=== PATIENT | male | born 1935 | race Caucasian/White ===

== ENCOUNTER 2019-11-21 17:09 | Emergency (ER) | payer MEDICARE, BC, SELFPAY ==
--- NOTE | ~2019-11-21 | CT_ITS ---
EXAMINATION: CT thoracic spine wo con DATE: 11/21/2019 19:43 INDICATION: Back pain TECHNIQUE: Computed tomography (CT) of the thoracic spine was performed without intravenous contrast. The dose-length product (DLP) was 973.66 mGy-cm. Iterative reconstruction was used. COMPARISON: None FINDINGS: There is an age-indeterminate T12 compression fracture. A chronic L1 compression fracture i s noted. Vertebral body alignment is maintained. There is mild loss of intervertebral disc space heig ht in the midthoracic spine. No additional thoracic spine fracture is identified. The esophagus is so mewhat patulous and contains ingested material. IMPRESSION: 1. Age-indeterminate T12 compression fracture. 2. Chronic L1 compression fracture. 3. Patulous esophagus with ingested material. Reviewed, dictated and finalized at location A.
--- NOTE | ~2019-11-21 | CT_ITS ---
EXAMINATION: CT abd pelvis lumbar wo con DATE: 11/21/2019 19:43 INDICATION: Low back and bilateral flank pain TECHNIQUE: Computed tomography (CT) of the abdomen, pelvis, and lumbar spine was performed without in travenous contrast. The dose-length product (DLP) was 428.59 mGy-cm. Automated exposure control and i terative reconstruction technique were employed. COMPARISON: 04/03/2010 FINDINGS: Abdomen/pelvis: Minimal dependent atelectasis is present in the lung bases. The heart size is enlarge d. There is calcification of the mitral valve. There is a 6 mm nodule of the left lower lobe in assoc iation with the major fissure on image 3. There are changes of prior cardiac surgery. A small sliding hiatal hernia is noted. There is minimal bilateral gynecomastia. Punctate calcifications in an other urias normal spleen likely represent healed granulomatous disease. A stone is present in the nondisten ded gallbladder. The liver, pancreas, and adrenal glands are normal. There is a 10 mm hemorrhagic cys t of the left kidney upper pole. There is atrophy of the kidneys. No stones are identified in the kid neys, ureters, or bladder. There is no hydronephrosis or hydroureter. There is calcified atherosclero sis of the aorta and many of the other arteries. No pathologically enlarged abdominal or pelvic lymph nodes are identified. There is no free intraperitoneal gas or evidence of bowel obstruction. The marshall endix is normal. Lumbar spine: There is a chronic L1 compression fracture. There are age indeterminate compression fra ctures of the T12 and L5 vertebral bodies. Bone alignment is normal. There is mild loss of interverte bral disc space height at L1-2. IMPRESSION: 1. No acute visceral abnormality of the abdomen or pelvis. 2. Age-indeterminate compression fractures of T12 and L5. 3. 6 mm nodule of the left lower lobe. Recommend CT in 6-12 months. Reviewed, dictated and finalized at location A.
--- NOTE | ~2019-11-21 | XR_ITS ---
EXAMINATION: XR chest 2V DATE: 11/21/2019 19:52 INDICATION: Weakness TECHNIQUE: AP and lateral views of the chest are obtained. COMPARISON: 03/20/2010 FINDINGS: The lungs are free of acute opacities. There is no pleural effusion or pneumothorax. The he art size is normal. 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 T12 and L1 compression fractures are noted and described elsewhere . IMPRESSION: 1. No acute cardiopulmonary abnormality. Reviewed, dictated and finalized at location A.
--- NOTE | 2019-11-21 17:50 | ECG_ITS ---
Measurements Intervals [place] Rate: 70 P: 169 LA: 156 QRS: 121 QRSD: 147 T: 137 QT: 448 QTc: 485 Interpretive Statements SINUS RHYTHM ARM LEADS REVERSED RIGHT BUNDLE BRANCH BLOCK BASELINE ARTIFACT- I, II, III, AVR, AVL, AVF ABNORMAL ECG Electronically Signed On 11-22-2019 6:50:30 CDT by Wisam Mcdermott D.O.
[2019-11-21 17:53] VITALS: BP 155/71; PULSE 66; RESP 18; TEMP 36.5; O2SAT 100
[2019-11-21 18:07] LABS: Basophils Percent Auto 0.4 % (0.2-1.2); Eosinophils Absolute Auto 0.1 K/mm3 (0-0.3); Eosinophils Percent Auto 1.6 % (0-4.4); Hematocrit 33.5 % (42.0-52.0); Hemoglobin 11.1 g/dL (14.0-18.0); Immature Granulocyte Absolute 0.03 K/mm3 (0.00-0.031); Immature Granulocyte Percent A 0.3 % (0-0.5); Lymphocytes Absolute Auto 2.88 K/mm3 (0.9-3.2); Lymphocytes Percent Auto 32.2 % (18.3-44.2); Mean Corpuscular HGB Conc 33.1 g/dl (32-36); Mean Corpuscular Hemoglobin 33.4 pg (26-34); Mean Corpuscular Volume 100.9 fl (80-100); Mean Platelet Volume 11.8 fl (7.4-10.4); Monocytes Absolute Auto 0.5 K/mm3 (0.1-0.6); Monocytes Percent Auto 5.9 % (2.6-8.5); Neutrophils Absolute Auto 5.3 K/mm3 (1.3-6.7); Neutrophils Percent Auto 59.6 % (45.5-73.1); Platelet Count Result 172 k/mm3 (150-375); Red Blood Count 3.32 M/mm3 (4.6-6.20); Red Cell Distribution Width 15.8 % (11.5-14.5); White Blood Count 8.9 K/mm3 (4.5-10.0)
[2019-11-21 18:19] LABS: Alanine Aminotransferase 13 U/L (4-50); Albumin Level 3.6 g/dL (3.5-5.1); Alkaline Phosphatase 135 U/L (38-126); Anion Gap 9 mmol/L (8-16); Aspartate Amino Transferase 25 U/L (17-59); Bilirubin,Total 0.3 mg/dL (0.2-1.3); Blood Urea Nitrogen 41 mg/dL (9-20); Calcium 9.7 mg/dL (8.4-10.2); Carbon Dioxide 31 mmol/L (22-30); Chloride 99 mmol/L (98-107); Estimated CRCL calculation 19 ml/min; Estimated Glomerular Filt Rate 23; Glucose 236 mg/dL (75-110); Sodium 139 mmol/L (137-145)
--- NOTE | 2019-11-21 19:14 | ED.WEAKNESS ---
HPI - Weakness General Chief complaint: Weakness Stated complaint: weakness/possible uti Time Seen by Provider: 11/21/19 19:00 History of Present Illness HPI Narrative: Low back pain for the past 3 weeks. Located in the midline. Radiates to the bilateral low back. Becoming increasingly weak. Normally ambulatory, now heavily dependent on walker. He has urinary retention self caths. Maybe decreased urine output. History of CKD, does not know baseline creatinine. Related Data Home Medications Medication Instructions Recorded Confirmed allopurinol 300 mg PO DAILY 11/21/19 bimatoprost [Lumigan] 1 drp 11/21/19 dutasteride 0.5 mg PO DAILY 11/21/19 furosemide 20 mg PO DAILY 11/21/19 insulin NPH and regular human 24 unit SUBCUT QPM 11/21/19 [Humulin 70/30 U-100 Insulin] insulin NPH and regular human 30 unit SUBCUT QAM 11/21/19 [Humulin 70/30 U-100 Insulin] lisinopril 10 mg PO DAILY 11/21/19 metoprolol tartrate 25 mg PO DAILY 11/21/19 pantoprazole 40 mg PO DAILY 11/21/19 rosuvastatin 10 mg PO DAILY 11/21/19 Allergies Allergy/AdvReac Type Severity Reaction Status Date / Time Penicillins Allergy Mild RASH Verified 04/15/10 22:57 Review of Systems Review of Systems: All systems reviewed & are unremarkable except as noted in HPI and below Constitutional: Constitutional: Denies chills, Denies fever(s) and Reports weakness Cardiovascular: Cardiovascular: Denies chest pain Respiratory: Respiratory: Denies dyspnea Gastrointestinal: Gastrointestinal: Reports abdominal pain Genitourinary: Genitourinary: Denies hematuria and Reports oliguria Musculoskeletal: Musculoskeletal: Reports back pain Neurologic: Reports dizziness, Denies headache(s), Denies numbness and Reports weakness [facility] Past Medical History Medical History (Updated 11/22/19 @ 00:00 by Pepe Daestrada) CKD (chronic kidney disease) Diabetes Social History Social History (Updated 11/21/19 @ 19:40 by Jacob Adam MD) Living arrangements: with family Gender identity (if verbalized by the patient): Male Exam Const: General: no acute distress and alert Nutritional Appearance: thin Orientation/consciousness: patient oriented x3 HENMT: Head: normal to inspection Resp: Effort & Inspection: normal respiratory effort Auscultation: clear to auscultation bilaterally Cardio: Rate: regular rate Rhythm: regular rhythm GI: Inspection: non-distended GI Palp: Yes Soft to palpation, Yes Tenderness to palpation present (GI) (suprapubic, mild), No Guarding due to palpation present (GI) and No Rebound tenderness present Skin: General skin exam: normal color Neuro: General: patient oriented x3, moves all extremities, no focal motor deficits and CN's II-XI intact bilaterally Speech: normal speech Extrem: General: edema left (foot and ankle) Course Vital Signs Vital signs: Vital Signs Temperature 36.5 C 11/21/19 17:53 Pulse Rate 66 11/21/19 17:53 Respiratory Rate 18 11/21/19 17:53 Blood Pressure 155/71 H 11/21/19 17:53 Pulse Oximetry 100 11/21/19 17:53 Temperature 36.5 C 11/21/19 17:53 Pulse Rate 68 11/21/19 22:55 Respiratory Rate 17 11/21/19 22:55 Blood Pressure 165/80 H 11/21/19 22:55 Pulse Oximetry 97 11/21/19 22:55 MDM - Weakness MDM Narrative Medical decision making narrative: I attempted to offer admission due to the weakness and uncertain chronicity of his renal failure. He declined admission. Differential Diagnosis Differential diagnosis: Likely dehydration and other (acute on chronic renal failure, kidney stone, ) Medical Records Attestation: I reviewed the patient's medical records. Lab Data Attestation: I reviewed the patient's lab results. Result diagrams: 11/21/19 18:01 11/21/19 18:02 Labs: Lab Results 11/21/19 11/21/19 11/21/19 Range/Units 18:01 18:02 19:54 WBC 8.9 (4.5-10.0) K/mm3 RBC 3.32 L (4.6-6.20) M/mm3 Hgb 11.1 L
--- NOTE | 2019-11-21 19:15 | PC.NURSE ---
report to brittanie lopez at this time, she has assumed pt care.
[2019-11-21] MEDS: SODIUM CHLORIDE 0.9% IV 1,000 ML 999 ML IV CONT (19:59)
[2019-11-21 20:00] VITALS: BP 179/77; PULSE 68; RESP 17; O2SAT 100
[2019-11-21 20:09] LABS: Add Urine Microscopic? YES; Appearance Urine Clear (Clear); Bacteria Urine 1+ /hpf; Bilirubin Urine Negative (Negative); Blood Urine Negative (Negative); Color Urine Yellow (Yellow); Glucose Urine UA Negative (Negative); Ketones Urine Negative (Negative); Leukocyte Esterase Ur 1+ LEU/UL (Negative); Nitrate Urine Negative (Negative); Protein Urine 1+ mg/dL (Negative); Specific Grav Ur 1.013 (1.001-1.035); Squamous Epithelial Cell Urine Few /hpf (Few); Urobilinogen Urine Negative mg/dL (<2.0); WBC Urine 16-20 /hpf
[2019-11-21 21:00] VITALS: BP 153/70; PULSE 73; RESP 14; O2SAT 100
--- NOTE | 2019-11-21 21:07 | PC.NURSE ---
Joann 181 /patient reports that he take 24units Humulin 70/30 at night---MD made aware
[2019-11-21 21:08] LABS: Glucose Point of Care 181 (65-105)
[2019-11-21 22:00] VITALS: BP 148/71; PULSE 77; RESP 15; O2SAT 100
[2019-11-21] MEDS: CEFDINIR 300 MG CAPSULE PO (22:54)
[2019-11-21 22:55] VITALS: BP 165/80; PULSE 68; RESP 17; O2SAT 97
== END 2019-11-21 22:55 | disposition home or self-care (01) ==
PROVIDERS: General Practice; Emergency Provider Emergency Medicine
DX: E11.22 Type 2 diabetes mellitus with diabetic chronic kidney disease (principal); N18.9 Chronic kidney disease, unspecified; M48.56XA Collapsed vertebra, not elsewhere classified, lumbar region, initial encounter for fracture; Z79.4 Long term (current) use of insulin; N39.0 Urinary tract infection, site not specified; R91.1 Solitary pulmonary nodule; I45.10 Unspecified right bundle-branch block
CPT/HCPCS: 36415; 71046; 72128; 72133; 74176; 80053; 81001; 85025; 87086; 87088; 93005; 96360; 99284; A9270; J7030